=== PATIENT | male | born 1955 | race Caucasian/White ===

== ENCOUNTER 2017-05-29 11:11 | Outpatient (CLI) | payer OTHER ==
--- NOTE | 2017-05-29 13:45 | RAD ---
TWO VIEWS CHEST: Comparison: None. History: Pre-operative radiograph. FINDINGS: Two views of the chest show normal sized cardiomediastinal silhouette. There is no evidence of conso lidation, mass, or pleural effusion. The bones are unremarkable. IMPRESSION: No evidence of acute cardiopulmonary disease. POS: [facility]
[2017-05-29 13:51] LABS: Hematocrit 49.5 % (42.0-52.0); Mean Platelet Volume 9.1 fL (7.4-10.4); Red Blood Cell (RBC) Count 5.24 mill/uL (4.70-6.10); White Blood Cell (WBC) Count 8.9 thou/uL (4.8-10.8)
[2017-05-29 14:20] LABS: Anion Gap 12 mmol/L (10-20); BUN (Urea Nitrogen) 29 mg/dL (8.4-25.7); Calc. Creatinine Clearance 0 mL/min (70-130); Calcium 9.4 mg/dL (7.8-10.44); Carbon Dioxide 24 mmol/L (23-31); Estimated GFR-MDRD 43
[2017-05-29 14:53] LABS: Chloride 108 mmol/L (98-107)
--- NOTE | 2017-05-31 09:05 | EKG ---
Test Reason : PREOP Blood Pressure : / mmHG Vent. Rate : 062 BPM Atrial Rate : 062 BPM P-R Int : 154 ms QRS Dur : 104 ms QT Int : 446 ms P-R-T Axes : 043 025 139 degrees QTc Int : 452 ms Normal sinus rhythm Left ventricular hypertrophy with repolarization abnormality Abnormal ECG No previous ECGs available Confirmed by EVER BENNETT ([id number]) on 05/31/2017 9:05:00 AM Referred By: MALLORY Confirmed By:EVER BENNETT
== END 2017-05-29 11:12 | disposition home or self-care (01) ==
LOC: LABBT 11:11
PROVIDERS: ATTEND Surgery
DX: Z01.818 Encounter for other preprocedural examination (principal); K40.90 Unilateral inguinal hernia, without obstruction or gangrene, not specified as recurrent
CPT/HCPCS: 71020; 80048; 85027; 93005; 93010

== ENCOUNTER 2017-06-14 06:04 | Day surgery (SDC) | payer OTHER ==
[2017-05-29 11:17] VITALS: BMI 25.8
[2017-06-14] MEDS ORDERED: Bupivacaine/Epinephrine 0.25% 30 ML VIAL ONE (06:47)
[2017-06-14] MEDS ORDERED: Fentanyl 100 MCG/2 ML VIAL ONE ×2 (07:03→09:03)
[2017-06-14] MEDS ORDERED: PHENYLEPHRINE-NS 100 MCG/ML 10 ML SYRINGE ONE (07:42)
[2017-06-14] MEDS ORDERED: Ondansetron HCl/PF 4 MG/2 ML Vial ONE (07:42)
[2017-06-14] MEDS ORDERED: Ketorolac Tromethamine 30 MG/ML VIAL ONE (07:42)
[2017-06-14] MEDS ORDERED: Glycopyrrolate 0.2 MG/ML 5 ML SYRINGE ONE (07:42)
[2017-06-14] MEDS ORDERED: Dexamethasone 20 MG/5 ML VIAL ONE (07:42)
[2017-06-14] MEDS ORDERED: Propofol 200 MG/20 ML VIAL ONE (07:42)
[2017-06-14] MEDS ORDERED: Lidocaine 1% PF 5 ML VIAL ONE (07:42)
--- NOTE | 2017-06-14 09:03 | OP ---
DATE OF PROCEDURE: 06/14/2017 PREOPERATIVE DIAGNOSIS: Right inguinal hernia. POSTOPERATIVE DIAGNOSIS: Right inguinal hernia. PROCEDURE PERFORMED: Da Nicci laparoscopic right inguinal hernia repair with mesh, 3DMax large. SURGEON: Chinmay Negrete M.D. ANESTHESIA: General. ESTIMATED BLOOD LOSS: Minimal. COMPLICATIONS: None. SPECIMEN: None. FINDINGS: Indirect right inguinal hernia. TECHNIQUE: The patient was taken to the operating room and placed supine on the table. After gener al anesthetic was obtained, a Sullivan was placed. The abdomen was shaved, prepped and draped in a reginaldo rile fashion. Curved incision made below the umbilicus. Cautery was used to dissect down to and sc ore the fascia. Abdominal cavity was entered bluntly using a Viridiana clamp followed by a 12-mm trocar . High-flow pneumoperitoneum was obtained. Left and right 8 mm robot trocars were placed. All por ts were docked to the robot. The patient had been placed in Trendelenburg position. Surgeon goes t o the console. The peritoneum was taken down in the right groin proximal to the hernia. The preper itoneal space was bluntly dissected all the way to the pubic tubercle medially and distally iliac cr est laterally. The femoral direct and indirect areas were all fully exposed and the indirect hernia sac dissected high up on the peritoneum. A 3DMax large mesh brought into the sterile field. The e nd-labelled medial aspect is brought in and placed over the pubic tubercle. The rest of the mesh wa s laid out laterally in the preperitoneal space. The mesh is sewn medial in the pubic tubercle with 2-0 Vicryl as well as the posterior fascia lateral to the vessels and lateral to the inferior epiga stric vessels. No sutures were placed in triangle of pain or triangle of doom. The mesh fully cove rs direct, indirect and femoral areas. The peritoneum was reapproximated using running Stratafix sanders ture. All port sites were infiltrated using local anesthetic. All ports were removed under visuali zation without bleeding. Pneumoperitoneum was let down. PDS was used to close the fascial defect a dariela the umbilicus. All incisions were irrigated and closed using 4-0 Monocryl and Dermabond. The patient was en route to recovery in stable condition. All instrument counts, needle counts, and lap counts were correct.
[2017-06-14] MEDS ORDERED: Ondansetron ODT 4 MG TAB ONE (10:29)
== END 2017-06-14 10:30 | disposition home or self-care (01) ==
LOC: SDC 06:04
PROVIDERS: ATTEND Surgery
PROC: 0YU54JZ Supplement Right Inguinal Region with Synthetic Substitute, Percutaneous Endoscopic Approach (ICD-10-PCS; principal; 2017-06-14)
PROC: 8E0W4CZ Robotic Assisted Procedure of Trunk Region, Percutaneous Endoscopic Approach (ICD-10-PCS; principal; 2017-06-14)
DX: K40.90 Unilateral inguinal hernia, without obstruction or gangrene, not specified as recurrent (principal); I10 Essential (primary) hypertension; H40.9 Unspecified glaucoma; Z79.899 Other long term (current) drug therapy; Z98.818 Other dental procedure status; Z82.49 Family history of ischemic heart disease and other diseases of the circulatory system
CPT/HCPCS: C1781; J1100; J1885; J2001; J2405; J2704; J3010; Q0162

== ENCOUNTER 2022-04-27 12:34 | Outpatient (CLI) | payer MEDICARE, OTHER | END 2022-04-27 12:35 | disposition home or self-care (01) | LOC: ULT 12:34 | PROVIDERS: ATTEND Internal Medicine Nephrology | DX: N18.4 Chronic kidney disease, stage 4 (severe) (principal); Q61.3 Polycystic kidney, unspecified | CPT/HCPCS: 76770 ==

== ENCOUNTER 2023-06-21 15:54 | Inpatient (IN) | payer MEDICARE, OTHER ==
[2023-06-21 16:28] LABS: #Eosinphils 0.3 thou/uL (0.0-0.7); #Monocytes 0.9 thou/uL (0.11-0.59); #Neutrophils 8.4 thou/uL (1.40-6.50); %Basophils 0.3 % (0.0-1.0); %Eosinophils 2.5 % (0.0-10.0); %Lymphocytes 9.5 % (21.0-51.0); %Monocytes 8.1 % (0.0-10.0); %Neutrophils 79.4 % (42.0-75.0); Hematocrit 44.9 % (42.0-52.0); Hemoglobin 15.1 g/dL (14.0-18.0); Mean Corpuscular HGB CONC 33.6 g/dL (32.0-36.0); Mean Corpuscular Hemoglobin 29.8 pg (27.0-31.0); Mean Corpuscular Volume 88.6 fl (78.0-98.0); Platelet Count 215 10x3/uL (130-400); Red Blood Cell (RBC) Count 5.07 mill/uL (4.70-6.10); White Blood Cell (WBC) Count 10.6 10x3/uL (4.8-10.8)
[2023-06-21 17:01] LABS: ALT (SGPT) 18 U/L (8-55); AST (SGOT) 18 U/L (5-34); Albumin 4.6 g/dL (3.4-4.8); Alkaline Phosphatase 51 U/L (40-110); Anion Gap 13 mmol/L (10-20); BUN (Urea Nitrogen) 36 mg/dL (8.4-25.7); Bilirubin, Total 0.4 mg/dL (0.2-1.2); Calc. Creatinine Clearance 0 mL/min (70-130); Calcium 9.3 mg/dL (7.8-10.44); Carbon Dioxide 18 mmol/L (23-31); Chloride 109 mmol/L (98-107); Estimated GFR 24; Globulin 2.7 g/dL (2.4-3.5); Glucose 98 mg/dL (80-115); Lipase 52 U/L (8-78); Potassium 3.9 mmol/L (3.5-5.1); Protein, Total 7.3 g/dL (5.8-8.1); Sodium 136 mmol/L (136-145); Troponin I 0.062 ng/mL (< 0.028)
[2023-06-21] MEDS ORDERED: Ondansetron PF 4 MG/2 ML Vial IVP PRN (18:15)
[2023-06-21] MEDS ORDERED: Senokot S 8.6-50 MG TAB PO PRN (18:15)
[2023-06-21] MEDS ORDERED: Ondansetron ODT 4 MG TAB PO PRN (18:15)
[2023-06-21] MEDS ORDERED: Acetaminophen 325 MG TAB PO PRN (18:15)
[2023-06-21] MEDS ORDERED: Acetaminophen 650 MG Suppository PR PRN (18:15)
[2023-06-21] MEDS ORDERED: Bisacodyl 5 MG TAB PO PRN (18:15)
[2023-06-21] MEDS ORDERED: Metoprolol Tartrate 50 MG TAB ONE (19:13)
[2023-06-21] MEDS ORDERED: Metoprolol Tartrate 25 MG TAB ONE (19:13)
[2023-06-21] MEDS ORDERED: hydrALAZINE 25 MG TAB ONE (19:16)
[2023-06-21] MEDS ORDERED: Sodium Chloride 0.9% 1,000 ML IV SCH (19:45)
[2023-06-21] MEDS ORDERED: Heparin 5,000 UNITS/ML VIAL SC SCH (21:00)
[2023-06-21 22:02] LABS: Magnesium 2.1 mg/dL (1.6-2.6)
[2023-06-21 22:21] LABS: Troponin I 0.297 ng/mL (< 0.028)
[2023-06-22] MEDS: Nitroglycerin 2% Ointment 1 INCH/1 GM Packet TOP SCH ×4 (00:29→22:14)
[2023-06-22] MEDS: Famotidine 20 MG TAB PO SCH ×2 (00:30→20:26)
[2023-06-22 01:12] LABS: Troponin I 0.466 ng/mL (< 0.028)
[2023-06-22 01:14] VITALS: BMI 26.3
[2023-06-22] MEDS ORDERED: hydrALAZINE 25 MG TAB PO SCH (01:30)
[2023-06-22] MEDS ORDERED: Heparin 10,000 UNITS/ 10 ML VIAL SLOW IVP SCH (01:30)
[2023-06-22] MEDS ORDERED: Heparin 25,000 units/D5W 500 ML IVPB SCH (01:45)
[2023-06-22 04:38] LABS: Hemoglobin A1c 5.9 % (4.0-6.0)
[2023-06-22 04:39] LABS: #Eosinphils 0.4 thou/uL (0.0-0.7); #Monocytes 0.7 thou/uL (0.11-0.59); #Neutrophils 5.7 thou/uL (1.40-6.50); %Basophils 0.5 % (0.0-1.0); %Eosinophils 4.9 % (0.0-10.0); %Lymphocytes 16.3 % (21.0-51.0); %Monocytes 8.9 % (0.0-10.0); %Neutrophils 69.2 % (42.0-75.0); Hematocrit 43.6 % (42.0-52.0); Hemoglobin 14.9 g/dL (14.0-18.0); Mean Corpuscular HGB CONC 34.2 g/dL (32.0-36.0); Mean Corpuscular Hemoglobin 29.7 pg (27.0-31.0); Mean Platelet Volume 11.5 fL (7.4-10.4); Platelet Count 212 10x3/uL (130-400); RBC Distribution Width 13.9 % (11.5-14.5); Red Blood Cell (RBC) Count 5.01 mill/uL (4.70-6.10); White Blood Cell (WBC) Count 8.2 10x3/uL (4.8-10.8)
[2023-06-22 05:02] LABS: Anion Gap 14 mmol/L (10-20); BUN (Urea Nitrogen) 34 mg/dL (8.4-25.7); Calc. Creatinine Clearance 31 mL/min (70-130); Calcium 8.7 mg/dL (7.8-10.44); Carbon Dioxide 18 mmol/L (23-31); Chloride 111 mmol/L (98-107); Cholesterol 113 mg/dl (< 200 Desired); Estimated GFR 27; Glucose 82 mg/dL (80-115); HDL Cholesterol 28 mg/dL (>60 Neg Risk); LDL Cholesterol, Calculated 62 mg/dL; Potassium 3.7 mmol/L (3.5-5.1); Sodium 139 mmol/L (136-145); Triglycerides 116 mg/dL (Less than 150)
[2023-06-22] MEDS ORDERED: Aspirin 325 mg Enteric Coated Tablet PO SCH (09:00)
[2023-06-22] MEDS ORDERED: FLU VACC QS2023(65UP)/MF59C/PF 60 MCG/0.5 ML SYRINGE IM ONE (09:00)
[2023-06-22] MEDS ORDERED: Iopamidol 370 76% 100 ML VIAL ONE (09:13)
[2023-06-22] MEDS ORDERED: Sodium Chloride 0.9% 1,000 ML IV SCH ×2 (09:15→12:42)
[2023-06-22 10:10] LABS: PTT 176.5 sec (22.9-36.1)
[2023-06-22] MEDS ORDERED: Communication Order-Pharmacy FS SCH (11:00)
[2023-06-22] MEDS ORDERED: Heparin 10,000 UNITS/ 10 ML VIAL ONE (11:04)
[2023-06-22] MEDS ORDERED: Midazolam HCl 2 mg/2 ml Vial ONE (11:04)
[2023-06-22] MEDS ORDERED: fentaNYL 50 mcg/mL 1 mL Vial ONE (11:04)
[2023-06-22] MEDS ORDERED: Lidocaine 1% (PF) 30 ML VIAL ONE (11:04)
[2023-06-22] MEDS ORDERED: Nitroglycerin 50 MG/250 ML BOT 0 ML ONE (11:05)
[2023-06-22] MEDS ORDERED: Protamine Sulfate 50 MG/5 ML VIAL ONE (12:40)
[2023-06-22] MEDS ORDERED: Sodium Chloride 0.9% 200 ML IV PRN (12:40)
[2023-06-22] MEDS ORDERED: [UNRECOGNIZED DRUG - OTHER] FS SCH (15:51)
[2023-06-22] MEDS: Atorvastatin Calcium 20 MG TAB PO SCH (20:26)
[2023-06-23] MEDS: Acetaminophen/Codeine 30-300mg Tablet PO PRN ×5 (02:08→23:42)
[2023-06-23] MEDS ORDERED: Morphine 4 MG/ML VIAL SLOW IVP SCH (04:00)
[2023-06-23 05:35] LABS: Anion Gap 14 mmol/L (10-20); BUN (Urea Nitrogen) 33 mg/dL (8.4-25.7); Calc. Creatinine Clearance 29 mL/min (70-130); Calcium 8.6 mg/dL (7.8-10.44); Carbon Dioxide 17 mmol/L (23-31); Chloride 112 mmol/L (98-107); Estimated GFR 25; Glucose 110 mg/dL (80-115); Potassium 4.2 mmol/L (3.5-5.1); Sodium 139 mmol/L (136-145)
[2023-06-23 05:43] LABS: Troponin I 0.206 ng/mL (< 0.028)
[2023-06-23] MEDS: Nitroglycerin 2% Ointment 1 INCH/1 GM Packet TOP SCH ×4 (06:00→23:40)
[2023-06-23] MEDS: Aspirin 81 mg Enteric Coated Tablet PO SCH (10:26)
[2023-06-23] MEDS: Nitroglycerin 0.4 MG TAB (25 Tab Bottle) SL PRN ×3 (13:04→13:17)
[2023-06-23] MEDS ORDERED: Communication Order-Pharmacy FS ONE (14:55)
[2023-06-23 16:14] LABS: Hematocrit 38.7 % (42.0-52.0); Hemoglobin 13.1 g/dL (14.0-18.0); Platelet Count 177 10x3/uL (130-400)
[2023-06-23] MEDS: Atorvastatin Calcium 20 MG TAB PO SCH (20:34)
[2023-06-23] MEDS: Famotidine 20 MG TAB PO SCH (20:34)
[2023-06-24 04:56] LABS: Anion Gap 15 mmol/L (10-20); BUN (Urea Nitrogen) 30 mg/dL (8.4-25.7); Calc. Creatinine Clearance 29 mL/min (70-130); Calcium 8.6 mg/dL (7.8-10.44); Carbon Dioxide 18 mmol/L (23-31); Chloride 111 mmol/L (98-107); Estimated GFR 25; Glucose 117 mg/dL (80-115); Potassium 3.9 mmol/L (3.5-5.1); Sodium 140 mmol/L (136-145)
[2023-06-24] MEDS: Nitroglycerin 2% Ointment 1 INCH/1 GM Packet TOP SCH ×4 (05:33→23:40)
[2023-06-24] MEDS: Aspirin 81 mg Enteric Coated Tablet PO SCH (09:40)
[2023-06-24] MEDS: Famotidine 20 MG TAB PO SCH (20:13)
[2023-06-24] MEDS: Atorvastatin Calcium 20 MG TAB PO SCH (20:14)
[2023-06-24] MEDS: Acetaminophen/Codeine 30-300mg Tablet PO PRN (20:14)
[2023-06-25] MEDS ORDERED: Sevoflurane 250 ML INH ANEST BOTTLE ONE (02:09)
[2023-06-25] MEDS: Nitroglycerin 2% Ointment 1 INCH/1 GM Packet TOP SCH (05:18)
[2023-06-25 05:28] LABS: Anion Gap 14 mmol/L (10-20); BUN (Urea Nitrogen) 37 mg/dL (8.4-25.7); Calc. Creatinine Clearance 27 mL/min (70-130); Calcium 8.8 mg/dL (7.8-10.44); Carbon Dioxide 20 mmol/L (23-31); Chloride 108 mmol/L (98-107); Estimated GFR 23; Glucose 89 mg/dL (80-115); Potassium 3.8 mmol/L (3.5-5.1); Sodium 138 mmol/L (136-145)
[2023-06-25] MEDS ORDERED: Albumin 5% 500 ML ONE (06:13)
[2023-06-25] MEDS ORDERED: Heparin 30,000 units/30 ml VIAL ONE (06:31)
[2023-06-25] MEDS ORDERED: Protamine Sulfate 250 MG/25 ML VIAL ONE (06:31)
[2023-06-25] MEDS ORDERED: Magnesium 5 GM/10 ML VIAL ONE (06:31)
[2023-06-25] MEDS ORDERED: DOPamine 400 MG/10 ML VIAL ONE (06:31)
[2023-06-25] MEDS ORDERED: Cardioplegic Soln 1,000 ML BAG ONE (06:31)
[2023-06-25] MEDS ORDERED: Aminocaproic Acid 5 GM/20 ML VIAL ONE (06:31)
[2023-06-25] MEDS ORDERED: PROPOFOL 200 MG/20 ML VIAL ONE (06:31)
[2023-06-25] MEDS ORDERED: Dexamethasone 20 MG/5 ML VIAL ONE (06:31)
[2023-06-25] MEDS ORDERED: Calcium Chloride 1 GM/10 ML Abboject SYRINGE ONE (06:31)
[2023-06-25] MEDS ORDERED: Lidocaine 2% PF 100 mg/5 ml Syringe ONE (06:31)
[2023-06-25] MEDS ORDERED: Mannitol 12.5 GM/50 ML ONE ×2 (06:31→07:22)
[2023-06-25] MEDS ORDERED: Rocuronium Bromide 10 MG/ML (10ML VIAL) ONE (06:31)
[2023-06-25] MEDS ORDERED: Thrombin 5000 UNITS/5 ML VIAL ONE (06:31)
[2023-06-25] MEDS ORDERED: Lidocaine 1% PF 5 ML VIAL ONE (06:31)
[2023-06-25] MEDS ORDERED: Sodium Bicarb 50 MEQ/50 ML VIAL ONE (06:31)
[2023-06-25] MEDS ORDERED: Heparin 5,000 UNITS/ML VIAL ONE (06:31)
[2023-06-25] MEDS ORDERED: Vancomycin 1 GM VIAL ONE (06:31)
[2023-06-25] MEDS ORDERED: Potassium Chloride 60 MEQ/30 ML VIAL ONE (06:31)
[2023-06-25] MEDS ORDERED: Nitroglycerin 50 MG/250 ML BOT ONE (06:31)
[2023-06-25] MEDS ORDERED: Papaverine 60 MG/2 ML VIAL ONE ×2 (06:31→06:54)
[2023-06-25] MEDS ORDERED: Lidocaine 1% MPF 2 ML VIAL ONE (06:45)
[2023-06-25] MEDS ORDERED: fentaNYL 50 mcg/mL 1 mL Vial ONE (06:45)
[2023-06-25] MEDS ORDERED: Midazolam HCl 2 mg/2 ml Vial ONE ×2 (06:45→07:24)
[2023-06-25] MEDS ORDERED: Heparin 10,000 UNITS/1 ML VIAL 30,000 UNITS in Sodium Chloride 0.9% 1,000 ML FS SCH (07:00)
[2023-06-25] MEDS ORDERED: Fentanyl 250 MCG/5 ML VIAL ONE ×2 (07:22→07:24)
[2023-06-25] MEDS ORDERED: Norepinephrine 4 MG/4 ML VIAL ONE (07:22)
[2023-06-25] MEDS ORDERED: Milrinone 10 MG/10 ML VIAL ONE (07:22)
[2023-06-25] MEDS ORDERED: Phenylephrine 10 MG/ML VIAL ONE (07:22)
[2023-06-25] MEDS ORDERED: Sodium Chloride 0.9% 100 ML ONE (07:26)
[2023-06-25] MEDS ORDERED: CEFAZOLIN 2 GM VIAL ONE (07:26)
[2023-06-25] MEDS ORDERED: Bisacodyl 10 MG SUPP PR PRN (12:06)
[2023-06-25] MEDS ORDERED: fentaNYL 50 mcg/mL 1 mL Vial SLOW IVP PRN ×2 (12:06)
[2023-06-25] MEDS ORDERED: Acetaminophen 325 MG TAB PO PRN (12:06)
[2023-06-25] MEDS ORDERED: Ipratropium/Albuterol 3 ML NEB NEB PRN (12:06)
[2023-06-25] MEDS ORDERED: Guaifenesin DM 100-10/5 ML UDCUP PO PRN (12:06)
[2023-06-25] MEDS ORDERED: Bisacodyl 5 MG TAB PO PRN (12:06)
[2023-06-25] MEDS ORDERED: DOPamine 400 MG/D5W 250 ML 250 ML IVPB PRN (12:06)
[2023-06-25] MEDS ORDERED: Hetastarch 6% 500 ML 500 ML IVPB PRN (12:06)
[2023-06-25] MEDS ORDERED: Post-Op Insulin Drip Protocol IVPB ONE (12:06)
[2023-06-25] MEDS ORDERED: Sodium Bicarbonate 150 MEQ in Dextrose 5% in Water 1,000 ML IV SCH (12:06)
[2023-06-25] MEDS ORDERED: HYDROcodone/Acetaminophen 5/325 mg Tablet PO PRN (12:06)
[2023-06-25] MEDS ORDERED: niCARdipine 25 MG in Sodium Chloride 0.9% 250 ML 250 ML IVPB PRN (12:06)
[2023-06-25] MEDS ORDERED: NOREPINEPHRINE 8 MG/250 ML-D5W 250 ML IVPB PRN (12:06)
[2023-06-25] MEDS ORDERED: Mag-Al 1200 mg/1200 mg/30 ML UDCUP PO PRN (12:06)
[2023-06-25] MEDS ORDERED: Ondansetron PF 4 MG/2 ML Vial IVP PRN (12:06)
[2023-06-25] MEDS ORDERED: Dextrose 5% in Water 1,000 ML IV PRN (12:15)
[2023-06-25] MEDS ORDERED: Glucagon 1 MG/ML KIT SC PRN (12:15)
[2023-06-25] MEDS ORDERED: Dextrose 50% Abboject 50 ML SYRINGE SLOW IVP PRN (12:15)
[2023-06-25] MEDS ORDERED: HUMULIN R 100 UNITS in Sodium Chloride 0.9% 100 ML IVPB SCH (12:15)
[2023-06-25 12:17] LABS: Actual Bicarbonate (HCO3a) 19.1 mEq/L (22-28); Base Excess (BEa) -6.4 mEq/L (-2.0 to +3.0); CO2 Tension 38.2 mmHg (35.0-45.0); Calcium, Ionized (arterial) 1.09 mmol/L (1.12-1.30); Carboxyhemoglobin (COHb) 0.9 gm% (0.0-3.0); Hematocrit-ABG 37 % (42.0-52.0); Hemoglobin (Hb) 12.7 g/dL (14.0-18.0); O2 Tension (PaO2), arterial 63.5 mmHg (> 80.0); Potassium - ABG Lab 4.61 mmol/L (3.70-5.30); pH, Arterial 7.317 (7.35-7.45)
[2023-06-25 12:19] LABS: Puncture Site Arterial Line
[2023-06-25] MEDS: Sodium Chloride 0.9% 1,000 ML IV SCH (12:43)
[2023-06-25 12:50] LABS: #Eosinphils 0.1 thou/uL (0.0-0.7); #Monocytes 0.8 thou/uL (0.11-0.59); #Neutrophils 17.1 thou/uL (1.40-6.50); %Basophils 0.2 % (0.0-1.0); %Eosinophils 0.7 % (0.0-10.0); %Lymphocytes 3.9 % (21.0-51.0); %Monocytes 4.4 % (0.0-10.0); %Neutrophils 89.8 % (42.0-75.0); Hematocrit 35.5 % (42.0-52.0); Mean Corpuscular HGB CONC 33.8 g/dL (32.0-36.0); Mean Corpuscular Hemoglobin 30.2 pg (27.0-31.0); Mean Corpuscular Volume 89.2 fl (78.0-98.0); Mean Platelet Volume 11.7 fL (7.4-10.4); Platelet Count 112 10x3/uL (130-400); RBC Distribution Width 14.2 % (11.5-14.5); Red Blood Cell (RBC) Count 3.98 mill/uL (4.70-6.10); White Blood Cell (WBC) Count 19.1 10x3/uL (4.8-10.8)
[2023-06-25] MEDS: Morphine 2 MG/ML VIAL SLOW IVP PRN ×3 (12:58→13:50)
[2023-06-25 13:08] LABS: INR-International Normal Ratio 1.4; Prothrombin Time 18.2 sec (12.0-14.7)
[2023-06-25 13:15] LABS: Anion Gap 16 mmol/L (10-20); BUN (Urea Nitrogen) 37 mg/dL (8.4-25.7); Calc. Creatinine Clearance 29 mL/min (70-130); Calcium 7.5 mg/dL (7.8-10.44); Carbon Dioxide 17 mmol/L (23-31); Chloride 111 mmol/L (98-107); Estimated GFR 25; Glucose 122 mg/dL (80-115); Potassium 4.7 mmol/L (3.5-5.1); Sodium 139 mmol/L (136-145)
[2023-06-25] MEDS: Insulin Regular 300 UNITS/3 ML VIAL SC PRN (14:52)
[2023-06-25] MEDS: CEFAZOLIN 2 GM in Sodium Chloride 0.9% 100 ML IVPB SCH ×2 (14:53→22:09)
[2023-06-25 15:35] LABS: Actual Bicarbonate (HCO3a) 17.5 mEq/L (22-28); CO2 Tension 35.6 mmHg (35.0-45.0); Calcium, Ionized (arterial) 1.06 mmol/L (1.12-1.30); Carboxyhemoglobin (COHb) 0.3 gm% (0.0-3.0); Hematocrit-ABG 34 % (42.0-52.0); Hemoglobin (Hb) 11.4 g/dL (14.0-18.0); O2 Tension (PaO2), arterial 83.8 mmHg (> 80.0); Potassium - ABG Lab 4.13 mmol/L (3.70-5.30); pH, Arterial 7.309 (7.35-7.45)
[2023-06-25 15:37] LABS: Puncture Site Arterial Line
[2023-06-25 16:43] LABS: Actual Bicarbonate (HCO3a) 18.1 mEq/L (22-28); Base Excess (BEa) -7.8 mEq/L (-2.0 to +3.0); Calcium, Ionized (arterial) 1.06 mmol/L (1.12-1.30); Carboxyhemoglobin (COHb) 0.3 gm% (0.0-3.0); Hematocrit-ABG 34 % (42.0-52.0); Hemoglobin (Hb) 11.6 g/dL (14.0-18.0); Potassium - ABG Lab 4.08 mmol/L (3.70-5.30); pH, Arterial 7.295 (7.35-7.45)
[2023-06-25 16:44] LABS: Puncture Site Arterial Line
[2023-06-25 18:31] LABS: Hematocrit 32.3 % (42.0-52.0); Hemoglobin 10.9 g/dL (14.0-18.0)
[2023-06-25 18:52] LABS: Potassium 4.1 mmol/L (3.5-5.1)
[2023-06-25] MEDS: Atorvastatin Calcium 20 MG TAB PO SCH (22:09)
[2023-06-25] MEDS: Famotidine/PF 20 mg/2ml Vial SLOW IVP SCH (22:11)
[2023-06-26] MEDS: HYDROcodone/Acetaminophen 5/325 mg Tablet PO PRN ×2 (00:51→19:41)
[2023-06-26] MEDS: Insulin Regular 300 UNITS/3 ML VIAL SC PRN ×4 (00:58→16:09)
[2023-06-26 04:21] LABS: #Neutrophils 13.1 thou/uL (1.40-6.50); %Basophils 0.1 % (0.0-1.0); %Lymphocytes 4.3 % (21.0-51.0); %Monocytes 6.9 % (0.0-10.0); %Neutrophils 88.4 % (42.0-75.0); Hematocrit 29.1 % (42.0-52.0); Hemoglobin 9.8 g/dL (14.0-18.0); Mean Corpuscular HGB CONC 33.7 g/dL (32.0-36.0); Mean Corpuscular Hemoglobin 30.1 pg (27.0-31.0); Mean Corpuscular Volume 89.3 fl (78.0-98.0); Mean Platelet Volume 12.8 fL (7.4-10.4); Platelet Count 121 10x3/uL (130-400); RBC Distribution Width 14.6 % (11.5-14.5); Red Blood Cell (RBC) Count 3.26 mill/uL (4.70-6.10); White Blood Cell (WBC) Count 14.8 10x3/uL (4.8-10.8)
[2023-06-26 04:45] LABS: Anion Gap 14 mmol/L (10-20); BUN (Urea Nitrogen) 39 mg/dL (8.4-25.7); Calc. Creatinine Clearance 30 mL/min (70-130); Calcium 7.5 mg/dL (7.8-10.44); Carbon Dioxide 23 mmol/L (23-31); Chloride 109 mmol/L (98-107); Estimated GFR 26; Glucose 150 mg/dL (80-115); Potassium 3.8 mmol/L (3.5-5.1); Sodium 142 mmol/L (136-145)
[2023-06-26] MEDS: Sodium Chloride 0.9% 1,000 ML IV SCH ×2 (07:09→08:00)
[2023-06-26] MEDS: CEFAZOLIN 2 GM in Sodium Chloride 0.9% 100 ML IVPB SCH (07:10)
[2023-06-26] MEDS: Aspirin Chewable 81 MG TAB PO SCH (08:00)
[2023-06-26] MEDS ORDERED: Insulin Glargine 30 UNITS/0.3 ML VIAL SC PRN (12:11)
[2023-06-26] MEDS: Atorvastatin Calcium 20 MG TAB PO SCH (19:41)
[2023-06-26] MEDS: Famotidine/PF 20 mg/2ml Vial SLOW IVP SCH (19:41)
[2023-06-26] MEDS ORDERED: traZODone HCl 50 MG TAB PO SCH (21:30)
[2023-06-26] MEDS ORDERED: Melatonin 3 MG TAB PO SCH (21:30)
[2023-06-27] MEDS: Sodium Chloride 0.9% 1,000 ML IV SCH (03:46)
[2023-06-27 04:15] LABS: #Eosinphils 0.1 thou/uL (0.0-0.7); #Monocytes 0.9 thou/uL (0.11-0.59); #Neutrophils 10.4 thou/uL (1.40-6.50); %Basophils 0.2 % (0.0-1.0); %Eosinophils 0.9 % (0.0-10.0); %Lymphocytes 7.7 % (21.0-51.0); %Monocytes 7.3 % (0.0-10.0); %Neutrophils 83.5 % (42.0-75.0); Hematocrit 26.7 % (42.0-52.0); Mean Corpuscular HGB CONC 33.7 g/dL (32.0-36.0); Mean Corpuscular Hemoglobin 30.4 pg (27.0-31.0); Mean Corpuscular Volume 90.2 fl (78.0-98.0); Mean Platelet Volume 12.5 fL (7.4-10.4); Platelet Count 126 10x3/uL (130-400); RBC Distribution Width 14.9 % (11.5-14.5); Red Blood Cell (RBC) Count 2.96 mill/uL (4.70-6.10); White Blood Cell (WBC) Count 12.4 10x3/uL (4.8-10.8)
[2023-06-27 04:46] LABS: Anion Gap 14 mmol/L (10-20); BUN (Urea Nitrogen) 40 mg/dL (8.4-25.7); Calc. Creatinine Clearance 32 mL/min (70-130); Calcium 7.6 mg/dL (7.8-10.44); Carbon Dioxide 22 mmol/L (23-31); Chloride 110 mmol/L (98-107); Estimated GFR 27; Glucose 106 mg/dL (80-115); Potassium 3.8 mmol/L (3.5-5.1); Sodium 142 mmol/L (136-145)
[2023-06-27] MEDS ORDERED: Nitroglycerin 0.4 MG TAB (25 Tab Bottle) SL PRN (07:39)
[2023-06-27] MEDS ORDERED: Artificial Tear Sol 15 ML BOT EA EYE PRN (07:39)
[2023-06-27] MEDS: Famotidine 20 MG TAB PO SCH (08:32)
[2023-06-27] MEDS: Aspirin Chewable 81 MG TAB PO SCH (08:32)
[2023-06-27] MEDS: Furosemide 40 MG TAB PO SCH (08:32)
[2023-06-27] MEDS: Dorzolamide HCl 2% Ophth Soln 10 ml Bottle EA EYE SCH ×2 (08:33→20:17)
[2023-06-27] MEDS: Polyethylene Glycol 3350 17 GM Packet PO SCH (08:36)
[2023-06-27] MEDS ORDERED: Latanoprost 0.005% Ophth Soln 2.5 ml Bottle EA EYE SCH (09:00)
[2023-06-27] MEDS ORDERED: Multivitamins, Adult 10 ML, Folic Acid 1 MG, Thiamine HCl 100 MG in Dextrose 5 %-0.45 %... IV SCH (18:45)
[2023-06-27] MEDS: LUMIGAN 0.01% EA EYE SCH (20:17)
[2023-06-27] MEDS: Atorvastatin Calcium 20 MG TAB PO SCH (20:17)
[2023-06-27] MEDS: Metoprolol Tartrate 25 MG TAB PO SCH (20:17)
[2023-06-27] MEDS ORDERED: traZODone HCl 50 MG TAB PO SCH (23:45)
[2023-06-27] MEDS: Melatonin 3 MG TAB PO PRN (23:46)
[2023-06-28 05:15] LABS: Anion Gap 10 mmol/L (10-20); BUN (Urea Nitrogen) 41 mg/dL (8.4-25.7); Calc. Creatinine Clearance 32 mL/min (70-130); Calcium 8.3 mg/dL (7.8-10.44); Carbon Dioxide 24 mmol/L (23-31); Chloride 107 mmol/L (98-107); Estimated GFR 28; Glucose 106 mg/dL (80-115); Potassium 3.5 mmol/L (3.5-5.1); Sodium 137 mmol/L (136-145)
[2023-06-28] MEDS ORDERED: Communication Order-Pharmacy FS ONE (07:55)
[2023-06-28] MEDS ORDERED: Potassium Chloride 20 MEQ TAB PO SCH (08:00)
[2023-06-28] MEDS: Metoprolol Tartrate 25 MG TAB PO SCH (09:49)
[2023-06-28] MEDS: Polyethylene Glycol 3350 17 GM Packet PO SCH (09:49)
[2023-06-28] MEDS: Furosemide 40 MG TAB PO SCH (09:49)
[2023-06-28] MEDS: Aspirin Chewable 81 MG TAB PO SCH (09:49)
[2023-06-28] MEDS: Dorzolamide HCl 2% Ophth Soln 10 ml Bottle EA EYE SCH ×2 (12:52→20:35)
[2023-06-28] MEDS: Metoprolol Tartrate 50 MG TAB PO SCH (20:35)
[2023-06-28] MEDS: Melatonin 3 MG TAB PO PRN (20:35)
[2023-06-28] MEDS: LUMIGAN 0.01% EA EYE SCH (20:36)
[2023-06-28] MEDS ORDERED: Atorvastatin Calcium 40 MG TAB PO SCH (21:00)
[2023-06-29 04:21] LABS: #Eosinphils 0.5 thou/uL (0.0-0.7); #Monocytes 1.1 thou/uL (0.11-0.59); #Neutrophils 9.3 thou/uL (1.40-6.50); %Basophils 0.3 % (0.0-1.0); %Eosinophils 3.9 % (0.0-10.0); %Lymphocytes 8.6 % (21.0-51.0); %Monocytes 8.9 % (0.0-10.0); %Neutrophils 77.9 % (42.0-75.0); Hematocrit 29.2 % (42.0-52.0); Mean Corpuscular HGB CONC 34.2 g/dL (32.0-36.0); Mean Corpuscular Hemoglobin 30.6 pg (27.0-31.0); Mean Corpuscular Volume 89.3 fl (78.0-98.0); Platelet Count 197 10x3/uL (130-400); RBC Distribution Width 14.6 % (11.5-14.5); Red Blood Cell (RBC) Count 3.27 mill/uL (4.70-6.10); White Blood Cell (WBC) Count 11.9 10x3/uL (4.8-10.8)
[2023-06-29 04:49] LABS: Anion Gap 15 mmol/L (10-20); BUN (Urea Nitrogen) 46 mg/dL (8.4-25.7); Calc. Creatinine Clearance 32 mL/min (70-130); Calcium 8.8 mg/dL (7.8-10.44); Carbon Dioxide 22 mmol/L (23-31); Chloride 107 mmol/L (98-107); Estimated GFR 28; Glucose 105 mg/dL (80-115); Potassium 3.7 mmol/L (3.5-5.1); Sodium 140 mmol/L (136-145)
[2023-06-29 07:53] VITALS: BP 149/84; TEMP 98
[2023-06-29] MEDS: Metoprolol Tartrate 50 MG TAB PO SCH (10:35)
[2023-06-29] MEDS: Polyethylene Glycol 3350 17 GM Packet PO SCH (10:36)
[2023-06-29] MEDS: Aspirin Chewable 81 MG TAB PO SCH (10:36)
[2023-06-29] MEDS: Dorzolamide HCl 2% Ophth Soln 10 ml Bottle EA EYE SCH (10:37)
[2023-06-29] MEDS: Famotidine 20 MG TAB PO SCH (10:37)
== END 2023-06-29 11:45 | disposition home or self-care (01) | DRG 234 ==
LOC: ERS 15:54 → INTOOBSV 17:35 → 2NO 17:35 → OBSVTOIN 06-22 11:52 → CCU 06-25 09:38 → 2NO 06-27 21:46
PROVIDERS: ADMIT Family Medicine; ATTEND Hospitalist
PROC: 4A023N7 Measurement of Cardiac Sampling and Pressure, Left Heart, Percutaneous Approach (ICD-10-PCS; principal; 2023-06-22)
PROC: B2111ZZ Fluoroscopy of Multiple Coronary Arteries using Low Osmolar Contrast (ICD-10-PCS; 2023-06-22)
PROC: 02100Z9 Bypass Coronary Artery, One Artery from Left Internal Mammary, Open Approach (ICD-10-PCS; 2023-06-25)
PROC: 021209W Bypass Coronary Artery, Three Arteries from Aorta with Autologous Venous Tissue, Open Approach (ICD-10-PCS; 2023-06-25)
PROC: 06BQ4ZZ Excision of Left Saphenous Vein, Percutaneous Endoscopic Approach (ICD-10-PCS; 2023-06-25)
PROC: 5A1221Z Performance of Cardiac Output, Continuous (ICD-10-PCS; 2023-06-25)
PROC: 02L70CK Occlusion of Left Atrial Appendage with Extraluminal Device, Open Approach (ICD-10-PCS; 2023-06-25)
PROC: 4A133R1 Monitoring of Arterial Saturation, Peripheral, Percutaneous Approach (ICD-10-PCS; 2023-06-25)
PROC: 3E033XZ Introduction of Vasopressor into Peripheral Vein, Percutaneous Approach (ICD-10-PCS; 2023-06-25)
PROC: 30233J1 Transfusion of Nonautologous Serum Albumin into Peripheral Vein, Percutaneous Approach (ICD-10-PCS; 2023-06-25)
DX: I21.4 Non-ST elevation (NSTEMI) myocardial infarction (principal); N18.4 Chronic kidney disease, stage 4 (severe); Q61.2 Polycystic kidney, adult type; I12.9 Hypertensive chronic kidney disease with stage 1 through stage 4 chronic kidney disease, or unspecified chronic kidney disease; E78.00 Pure hypercholesterolemia, unspecified; I25.10 Atherosclerotic heart disease of native coronary artery without angina pectoris; I35.8 Other nonrheumatic aortic valve disorders; Z79.899 Other long term (current) drug therapy; Z82.49 Family history of ischemic heart disease and other diseases of the circulatory system; Z98.890 Other specified postprocedural states
CPT/HCPCS: 36415; 36416; 36430; 71045; 80048; 80053; 80061; 82805; 83036; 83690; 83735; 83880; 84443; 84484; 85014; 85018; 85025; 85049; 85347; 85520; 85610; 85730; 86850; 86900; 86901; 93005; 93010; 93306; 93454; 93798; 94002; 94760; 96374; 96376; 97139; 99152; 99153; A4311; C1751; C1769; G0378; J1100; J1265; J1642; J1644; J1650; J1815; J2001; J2150; J2250; J2260; J2270; J2272; J2370; J2440; J2704; J2720; J3010; J3370; J3475; J3480; J3490; J7050; J7070; P9045; Q0162; Q9967; S0017; S0028

== ENCOUNTER 2023-10-07 23:25 | Inpatient (IN) | payer MEDICARE, OTHER ==
[2023-10-07 23:56] VITALS: BMI 21.1
[2023-10-08] MEDS ORDERED: Acetaminophen 325 MG TAB PO PRN (01:12)
[2023-10-08] MEDS ORDERED: Acetaminophen 650 MG Suppository PR PRN (01:12)
[2023-10-08 01:13] LABS: #Eosinphils 0.5 thou/uL (0.0-0.7); #Monocytes 0.8 thou/uL (0.11-0.59); #Neutrophils 8.2 thou/uL (1.40-6.50); %Basophils 0.1 % (0.0-1.0); %Eosinophils 4.8 % (0.0-10.0); %Monocytes 7.7 % (0.0-10.0); %Neutrophils 78.2 % (42.0-75.0); Hemoglobin 10.2 g/dL (14.0-18.0); Mean Corpuscular HGB CONC 32.9 g/dL (32.0-36.0); Mean Corpuscular Hemoglobin 28.9 pg (27.0-31.0); Mean Corpuscular Volume 87.8 fl (78.0-98.0); Mean Platelet Volume 11.1 fL (7.4-10.4); Platelet Count 214 10x3/uL (130-400); RBC Distribution Width 17.2 % (11.5-14.5); Red Blood Cell (RBC) Count 3.53 mill/uL (4.70-6.10); White Blood Cell (WBC) Count 10.4 10x3/uL (4.8-10.8)
[2023-10-08 01:36] LABS: ALT (SGPT) 15 U/L (8-55); AST (SGOT) 21 U/L (5-34); Albumin 3.6 g/dL (3.4-4.8); Alkaline Phosphatase 59 U/L (40-110); Anion Gap 14 mmol/L (10-20); BUN (Urea Nitrogen) 57 mg/dL (8.4-25.7); Bilirubin, Total 0.5 mg/dL (0.2-1.2); Calc. Creatinine Clearance 14 mL/min (70-130); Calcium 9.2 mg/dL (7.8-10.44); Carbon Dioxide 26 mmol/L (23-31); Chloride 100 mmol/L (98-107); Estimated GFR 12; Globulin 2.5 g/dL (2.4-3.5); Glucose 126 mg/dL (80-115); INR-International Normal Ratio 1.1; PTT 30.7 sec (22.9-36.1); Potassium 4.1 mmol/L (3.5-5.1); Protein, Total 6.1 g/dL (5.8-8.1); Prothrombin Time 14.4 sec (12.0-14.7); Sodium 136 mmol/L (136-145)
[2023-10-08] MEDS: Heparin 10,000 UNITS/ 10 ML VIAL SLOW IVP SCH (02:46)
[2023-10-08] MEDS: Heparin 25,000 units/D5W 500 ML IVPB SCH (02:47)
[2023-10-08] MEDS ORDERED: Metoprolol Tartrate 50 MG TAB PO SCH (09:00)
[2023-10-08] MEDS: Sacubitril 24MG/Valsartan 26 MG TAB PO SCH (09:07)
[2023-10-08] MEDS: Carvedilol 6.25 MG TAB PO SCH (09:07)
[2023-10-08] MEDS: Calcitriol 0.25 MCG CAP PO SCH (09:07)
[2023-10-08] MEDS: Sevelamer Carbonate 800 MG TAB PO SCH (09:08)
[2023-10-08] MEDS: Dorzolamide HCl 2% Ophth (10 mL) Bottle EA EYE SCH (10:07)
[2023-10-08] MEDS: EPOETIN ALFA-EPBX (ESRD) 10,000 UNITS/ML VIAL SC SCH (13:44)
[2023-10-08] MEDS: Rosuvastatin 20 MG TAB PO SCH (20:56)
[2023-10-08] MEDS: traZODone HCl 50 MG TAB PO SCH (20:56)
[2023-10-08] MEDS: Latanoprost 0.005% Ophth Soln 2.5 ml Bottle EA EYE SCH (20:57)
[2023-10-09] MEDS: Melatonin 3 MG TAB PO PRN (00:36)
[2023-10-09] MEDS: traZODone HCl 50 MG TAB PO SCH (00:37)
[2023-10-09 05:51] LABS: #Eosinphils 0.9 thou/uL (0.0-0.7); #Monocytes 0.7 thou/uL (0.11-0.59); #Neutrophils 6.1 thou/uL (1.40-6.50); %Basophils 0.3 % (0.0-1.0); %Eosinophils 10.1 % (0.0-10.0); %Lymphocytes 11.2 % (21.0-51.0); %Monocytes 8.1 % (0.0-10.0); %Neutrophils 70.1 % (42.0-75.0); Hematocrit 29.8 % (42.0-52.0); Hemoglobin 9.6 g/dL (14.0-18.0); Mean Corpuscular HGB CONC 32.2 g/dL (32.0-36.0); Mean Corpuscular Hemoglobin 28.3 pg (27.0-31.0); Mean Corpuscular Volume 87.9 fl (78.0-98.0); Mean Platelet Volume 12.1 fL (7.4-10.4); Platelet Count 199 10x3/uL (130-400); RBC Distribution Width 17.2 % (11.5-14.5); Red Blood Cell (RBC) Count 3.39 mill/uL (4.70-6.10); White Blood Cell (WBC) Count 8.7 10x3/uL (4.8-10.8)
[2023-10-09 06:15] LABS: Anion Gap 13 mmol/L (10-20); BUN (Urea Nitrogen) 61 mg/dL (8.4-25.7); Calc. Creatinine Clearance 13 mL/min (70-130); Calcium 8.5 mg/dL (7.8-10.44); Carbon Dioxide 22 mmol/L (23-31); Chloride 100 mmol/L (98-107); Estimated GFR 11; Glucose 88 mg/dL (80-115); Sodium 131 mmol/L (136-145)
[2023-10-09] MEDS: Ondansetron PF 4 MG/2 ML Vial IVP PRN (09:48)
[2023-10-09] MEDS: Lorazepam 1 MG TAB PO PRN (09:48)
[2023-10-09] MEDS: EPOETIN ALFA-EPBX (ESRD) 10,000 UNITS/ML VIAL SC SCH (13:57)
[2023-10-09] MEDS: Apixaban 5 MG TAB PO SCH (21:10)
[2023-10-10 04:54] LABS: #Eosinphils 0.5 thou/uL (0.0-0.7); #Monocytes 0.7 thou/uL (0.11-0.59); #Neutrophils 4.7 thou/uL (1.40-6.50); %Basophils 0.4 % (0.0-1.0); %Eosinophils 7.3 % (0.0-10.0); %Lymphocytes 12.6 % (21.0-51.0); %Monocytes 9.7 % (0.0-10.0); %Neutrophils 69.9 % (42.0-75.0); Hematocrit 28.6 % (42.0-52.0); Hemoglobin 9.3 g/dL (14.0-18.0); Mean Corpuscular HGB CONC 32.5 g/dL (32.0-36.0); Mean Corpuscular Hemoglobin 29.2 pg (27.0-31.0); Mean Corpuscular Volume 89.7 fl (78.0-98.0); Mean Platelet Volume 10.6 fL (7.4-10.4); Platelet Count 174 10x3/uL (130-400); RBC Distribution Width 17.3 % (11.5-14.5); Red Blood Cell (RBC) Count 3.19 mill/uL (4.70-6.10); White Blood Cell (WBC) Count 6.7 10x3/uL (4.8-10.8)
[2023-10-10 05:28] LABS: Anion Gap 11 mmol/L (10-20); BUN (Urea Nitrogen) 35 mg/dL (8.4-25.7); Calc. Creatinine Clearance 16 mL/min (70-130); Calcium 8.5 mg/dL (7.8-10.44); Carbon Dioxide 28 mmol/L (23-31); Chloride 102 mmol/L (98-107); Estimated GFR 14; Glucose 91 mg/dL (80-115); Potassium 4.2 mmol/L (3.5-5.1); Sodium 137 mmol/L (136-145)
[2023-10-10 13:32] VITALS: BP 117/62; TEMP 97
== END 2023-10-10 14:43 | disposition home or self-care (01) | DRG 302 ==
LOC: 2NO 23:25
PROVIDERS: ADMIT Internal Medicine; ATTEND Internal Medicine
PROC: 5A1D70Z Performance of Urinary Filtration, Intermittent, Less than 6 Hours Per Day (ICD-10-PCS; principal; 2023-10-07)
DX: I51.3 Intracardiac thrombosis, not elsewhere classified (principal); N18.6 End stage renal disease; T82.838A Hemorrhage due to vascular prosthetic devices, implants and grafts, initial encounter; I13.2 Hypertensive heart and chronic kidney disease with heart failure and with stage 5 chronic kidney disease, or end stage renal disease; I50.22 Chronic systolic (congestive) heart failure; N25.81 Secondary hyperparathyroidism of renal origin; Q61.3 Polycystic kidney, unspecified; I25.10 Atherosclerotic heart disease of native coronary artery without angina pectoris; N25.0 Renal osteodystrophy; E78.5 Hyperlipidemia, unspecified; T45.515A Adverse effect of anticoagulants, initial encounter; D63.8 Anemia in other chronic diseases classified elsewhere; E83.39 Other disorders of phosphorus metabolism; I25.5 Ischemic cardiomyopathy; Z99.2 Dependence on renal dialysis; Z95.1 Presence of aortocoronary bypass graft; Z79.899 Other long term (current) drug therapy; Z79.82 Long term (current) use of aspirin; I25.2 Old myocardial infarction; Z98.890 Other specified postprocedural states; Z82.49 Family history of ischemic heart disease and other diseases of the circulatory system
CPT/HCPCS: 36415; 80048; 80053; 85025; 85610; 85730; 90935; G0257; J1644; J2405; Q5105